=== PATIENT | female | born 1980 | race Caucasian/White ===

== ENCOUNTER 2020-05-10 16:45 | Outpatient (CLI) | payer OTHER, SELFPAY ==
--- NOTE | ~2020-05-10 | MM_ITS ---
EXAMINATION: MM screening joe BI w chicho HISTORY: Screening mammogram TECHNIQUE: Craniocaudal and mediolateral oblique 3-D tomosynthesis images were obtained and synthetic 2-D images were generated. CAD analysis was submitted and interpreted. COMPARISON: 04/20/2019, 02/23/2018 bilateral digital screening mammogram examinations BREAST PARENCHYMAL COMPOSITION: The breasts are extremely dense, which lowers the sensitivity of mamm ography. FINDINGS: There is no evidence of suspicious mass, calcification, or architectural distortion to sugg est malignancy in either breast. There has been no suspicious interval change. IMPRESSION: 1. No mammographic evidence of malignancy. 2. Recommend routine screening mammography in one year. BI-RADS Category 1: Negative Reviewed, dictated and finalized at location A. ARCH ELECTRICIAN
== END 2020-05-10 16:46 | disposition home or self-care (01) ==
LOC: ANHIMG 16:49
PROVIDERS: PCP Obstetrics & Gynecology; Visit Provider Obstetrics & Gynecology
DX: Z12.31 Encounter for screening mammogram for malignant neoplasm of breast (principal)
CPT/HCPCS: 77063; 77067

== ENCOUNTER 2021-06-04 16:54 | Outpatient (CLI) | payer OTHER, SELFPAY ==
--- NOTE | ~2021-06-04 | MM_ITS ---
EXAMINATION: MM screening joe BI w chicho HISTORY: 4 screening TECHNIQUE: Craniocaudal and mediolateral oblique 3-D tomosynthesis images were obtained and synthetic 2-D images were generated. CAD analysis was submitted and interpreted. COMPARISON: 05/10/2020, 04/20/2019, 02/23/2018 bilateral screening mammogram examinations BREAST PARENCHYMAL COMPOSITION: The breasts are extremely dense, which lowers the sensitivity of mamm ography. FINDINGS: There is no evidence of suspicious mass, calcification, or architectural distortion to sugg est malignancy in either breast. There has been no suspicious interval change. IMPRESSION: 1. No mammographic evidence of malignancy. 2. Recommend routine screening mammography in one year. BI-RADS Category 1: Negative Reviewed, dictated and finalized at location A. TOLOGIC SUPPORT SPECIALIST
== END 2021-06-04 16:55 | disposition home or self-care (01) ==
LOC: ANHIMG 16:56
PROVIDERS: Visit Provider Obstetrics & Gynecology
DX: Z12.31 Encounter for screening mammogram for malignant neoplasm of breast (principal)
CPT/HCPCS: 77063; 77067

== ENCOUNTER → 2021-11-05 10:00 | Outpatient (CLI) | payer OTHER, SELFPAY ==
--- NOTE | ~2021-11-05 | MMUS_ITS ---
EXAMINATION: MM diagnostic joe LT w chicho, US breast LT limited HISTORY: Left breast nodule TECHNIQUE: ML, MLO and CC full field and spot MLO 3-D tomosynthesis images of the left breast were pe rformed and synthetic 2-D images were generated. CAD analysis was submitted and interpreted. High res olution targeted left breast ultrasound at clinical complaint at 2:00 8 cm from the nipple was perfor med. COMPARISON: June 04, 2021 bilateral screening mammogram BREAST PARENCHYMAL COMPOSITION: The breasts are extremely dense, which lowers the sensitivity of mamm ography. FINDINGS: MAMMOGRAPHIC FINDINGS: No suspicious mass or architectural distortion, malignant calcification, skin thickening or retractio n or significant new or developing density is detected. ULTRASOUND: At the area of clinical complaint at 2:00 8 cm from the nipple there is a parallel circumscribed hypo echoic 2.3 x 5.1 x 4.5 mm lesion in the subcutaneous adipose tissues, with some internal vascularity and through transmission. This is benign in appearance sonographically, possibly a lymph node. 6 kiara h targeted ultrasound follow-up is recommended. IMPRESSION: 1. Probable benign lymph node or other benign process within the subcutaneous adipose tissue at 2:00 8 cm from nipple 2. Six-month targeted left breast ultrasound follow-up at 2:00 8 cm from nipple is recommended BI-RADS category 3, probably benign findings. Reviewed, dictated and finalized at location A. IMPRESSION: 1. Probable benign lymph node or other benign process within the subcutaneous a dipose tissue at 2:00 8 cm from nipple 2. Six-month targeted left breast ultrasound follow-up at 2:00 8 cm from nipple is recommended BI-RADS category 3, probably benign findings.
== END ==
PROVIDERS: Visit Provider Obstetrics & Gynecology
DX: N64.59 Other signs and symptoms in breast (principal); R92.8 Other abnormal and inconclusive findings on diagnostic imaging of breast
CPT/HCPCS: 76642; 77061; 77065; G0279

== ENCOUNTER → 2022-06-13 09:12 | Outpatient (CLI) | payer OTHER, SELFPAY ==
--- NOTE | ~2022-06-13 | MM_ITS ---
EXAMINATION: MM screening joe BI w chicho HISTORY: Screening TECHNIQUE: Craniocaudal and mediolateral oblique 3-D tomosynthesis images were obtained and synthetic 2-D images were generated. CAD analysis was submitted and interpreted. COMPARISON: Comparison to multiple prior studies sequentially, with oldest reviewed study dated 02/11. BREAST PARENCHYMAL COMPOSITION: The breasts are extremely dense, which lowers the sensitivity of mamm ography FINDINGS: There is no evidence of suspicious mass, calcification, or architectural distortion to sugg est malignancy in either breast. There has been no suspicious interval change. IMPRESSION: 1. No mammographic evidence of malignancy. 2. Recommend routine screening mammography in one year. BI-RADS Category 1: Negative Reviewed, dictated and finalized at location B. LERS SUPERVISOR
--- NOTE | ~2022-06-13 | US_ITS ---
US breast LT limited INDICATION: Six-month follow-up left breast mass TECHNIQUE: Dedicated Limited left breast ultrasound COMPARISON: 11/05/2021 FINDINGS: At 2:00, 8 cm from the nipple there is a stable oval hypoechoic mass with echogenic hilum, no internal vascularity or posterior shadowing measuring 5 mm, compatible with intramammary lymph nod e. No suspicious masses to suggest malignancy. IMPRESSION: 1: No sonographic evidence for malignancy in the left breast. Benign finding. Routine yearly screening mammogram and regular clinical breast examination are recommended. BI-RADS CATEGORY 2 - BENIGN FINDINGS Reviewed, dictated and finalized at location B. ILATOR SPECIALIST
== END ==
PROVIDERS: PCP Nurse Practitioner Family; Visit Provider Obstetrics & Gynecology
DX: Z12.31 Encounter for screening mammogram for malignant neoplasm of breast (principal); N63.21 Unspecified lump in the left breast, upper outer quadrant
CPT/HCPCS: 76642; 77063; 77067